=== PATIENT | female | born 1945 | race Caucasian/White ===

== ENCOUNTER → 2020-08-11 11:09 | Outpatient (REF) | payer MEDICARE, SELFPAY | LOC: ANHLAB 11:09 | PROVIDERS: PCP Family Medicine Sports Medicine; Visit Provider Nurse Practitioner | DX: C44.311 Basal cell carcinoma of skin of nose (principal); C43.62 Malignant melanoma of left upper limb, including shoulder | CPT/HCPCS: 88305; 88342 ==

== ENCOUNTER → 2020-08-30 00:50 | Outpatient (CLI) | payer MEDICARE, SELFPAY ==
[2020-08-30 16:45] LABS: SARS-CoV-2 RNA PCR Negative
== END ==
PROVIDERS: PCP Family Medicine Sports Medicine; Visit Provider Surgery Plastic and Reconstructive Surgery
DX: Z01.812 Encounter for preprocedural laboratory examination (principal); Z20.822 Contact with and (suspected) exposure to COVID-19
CPT/HCPCS: C9803; U0003; U0005

== ENCOUNTER 2020-09-01 10:37 | Outpatient (CLI) | payer MEDICARE, SELFPAY ==
--- NOTE | 2020-09-01 11:08 | ECG_ITS ---
Measurements Intervals [place] Rate: 85 P: 52 NC: 144 QRS: 39 QRSD: 90 T: 42 QT: 378 QTc: 451 Interpretive Statements SINUS RHYTHM DELAYED PRECORDIAL R/S TRANSITION LOW QRS VOLTAGE IN LIMB LEADS BORDERLINE ST ABNORMALITY- DIFFUSE LEADS BORDERLINE ECG Electronically Signed On 09-01-2020 11:45:28 CDT by Anton Hensley D.O.
[2020-09-01 11:30] LABS: Anion Gap 10 mmol/L (8-16); Blood Urea Nitrogen 22 mg/dL (7-17); Calcium 9.8 mg/dL (8.4-10.2); Carbon Dioxide 27 mmol/L (22-30); Chloride 101 mmol/L (98-107); Estimated Glomerular Filt Rate > 60; Glucose 223 mg/dL (65-110); Potassium 4.2 mmol/L (3.4-5.0); Sodium 138 mmol/L (137-145)
== END 2020-09-01 10:38 | disposition home or self-care (01) ==
LOC: ANHLAB 10:40
PROVIDERS: PCP Family Medicine Sports Medicine; Visit Provider Anesthesiology
DX: E11.9 Type 2 diabetes mellitus without complications (principal); I10 Essential (primary) hypertension; Z01.818 Encounter for other preprocedural examination
CPT/HCPCS: 36415; 80048; 93005

== ENCOUNTER 2020-09-03 01:39 | Day surgery (SDC) | payer MEDICARE, SELFPAY ==
[2020-08-28 12:55] VITALS: BMI 28.2
[2020-09-03] VITALS (9 sets, daily range): BP systolic 131–157; BP diastolic 61–86; PULSE 78–90; RESP 11–18; TEMP 36.1–36.7; O2SAT 91–97
--- NOTE | ~2020-09-03 | NM_ITS ---
EXAMINATION: NM sentinel node w imaging DATE: 09/03/2020 07:53 INDICATION: Melanoma the left arm TECHNIQUE: 0.512 mCi Tc-99m filtered sulfur colloid was injected in two aliquots at the medial and la teral margins of a fungating melanoma at the left upper arm. Frontal scintigram of the chest and axil lae were obtained. IMPRESSION: Left axillary sentinel node noted is present with prominent focal increased activity at the left axil la. Reviewed, dictated and finalized at location A. IMPRESSION: Left axillary sentinel node noted is present with prominent focal increased act ivity at the left axilla.
[2020-09-03] MEDS: LACTATED RINGERS 1,000 ML 30 ML IV CONT ×2 (06:55→10:20)
--- NOTE | 2020-09-03 07:00 | WPDANESEPPF ---
Anes - Initial Pre Proc Eval Procedure: Operation Date: 09/03/20 07:30 Proposed Procedures p Excision of Melanoma Left Arm with [place] Lymph Node Biopsy - Sumeet Baum MD s Excision of Basal Cell Carcinoma of Nose with Frozen Sections - Sumeet Baum MD Date/Time: 09/03/20 07:00 Surgeon: Sumeet Baum MD Pre Op Diagnosis: melanoma,basal cell carcinoma of nose Patient Data Age: 74 Gender: F Height: 1.65 m Weight: 77 kg Allergies Allergy/AdvReac Type Severity Reaction Status Date / Time Sulfa (Sulfonamide Allergy Unknown Verified 08/28/20 12:45 Antibiotics) Home Medications Medication Instructions Recorded Confirmed Type dapagliflozin 10 mg tablet 10 mg PO QAM 08/11/20 08/28/20 History desvenlafaxine 50 mg 50 mg PO QAM 08/11/20 08/28/20 History tablet,extended release 24 hr linagliptin 5 mg tablet 5 mg PO QAM 08/11/20 08/28/20 History pantoprazole 40 mg tablet,delayed 40 mg PO QAM 08/11/20 08/28/20 History release aspirin [Aspir-81] 81 mg PO QAM 08/28/20 08/28/20 History lisinopril-hydrochlorothiazide 1 tablet PO QAM 08/28/20 08/28/20 History Patient hx anesthesia problems: none Family hx anesthesia problems: none [facility] Past Medical History Medical History Depression Diabetes GERD (gastroesophageal reflux disease) Hypertension Surgical History Surgical History History of cholecystectomy 2019 Social History Social History Smoking status: Never smoker Alcohol intake: current Substance use: never Living arrangements: alone Spiritual care concerns: No Anes - Eval Final PreProcedure Day of Procedure 09/03/20 07:00 Patient weight: obese Heart: regular rate and rhythm Lungs: clear to auscultation Airway: Mallampati scale class III Neurological: alert and oriented Last oral intake: >/= 8 hours ASA classification: III Emergent: no Anesthetic plan: proceed Anesthesia type and monitoring: general LMA (may use ETT) and standard monitoring Informed Consent: The patient's anesthetic plan and its attendant risks and benefits were discussed with the patient/family/POA. Questions were solicited and answers provided to the satisfaction of the patient/family/POA.
[2020-09-03 07:03] LABS: Glucose Point of Care 219 mg/dl (65-105)
--- NOTE | 2020-09-03 07:43 | WPDHPUPDATE1 ---
History and Physical Update Update Date/Time: 09/03/20 07:43 History and Physical has been reviewed, including an updated exam of the patient. There are NO changes in the patient's condition. Will plan to proceed with: 1. Right nasal sidewall excision BCC with FS 2. Left forearm excision melanoma with sentinel node biopsy Risks, benefits, and alternatives have been discussed and questions answered. Patient agrees to proceed with procedure.
--- NOTE | 2020-09-03 07:44 | W.PM.PROC2 ---
Procedure Note - Detailed Date of Procedure 09/03/20 Pre-op Diagnosis melanoma,basal cell carcinoma of nose Post-op Diagnosis same Procedure Performed 1. Excision basal cell carcinoma right nasal sidewall 3 cm 2. Wide excision of melanoma left forearm 9 cm 3. Complex closure left forearm 9 cm 4. Oil Trough node biopsy left axilla x2 Surgeon Sumeet Baum MD Anesthesia general Indications She is a very pleasant 74-year-old female that came to see us with lesions of concern. On her right nasal sidewall pathology returned as BCC. Her left arm as a malignant melanoma with positive margins. She has elected to proceed with wide excision, sentinel node, and excision of BCC with frozen section. Findings Right nasal sidewall BCC had 2 components. These were 2 separate be cc in both completely excised on frozen section. Left axillary sentinel node biopsy 2 nodes were identified. The background was less than 10%. These were significantly enlarged. No pigmentation that was obvious. Wide excision with greater than 2 cm margins on left forearm. I was able to close. Description of Procedure Preoperative leave spent extensive time discussing the risks benefits and alternatives. I want her to be very realistic about the risks involved as well as expectations. I was very up front honest about long-term outcome and expectations. Reviewed NCCN guidelines. All questions answered and consent obtained. Preoperatively she was sent to Radiology. Oil Trough nodes were identified. She was then taken to the operating room placed supine on the operating room table. Anesthesia provided by anesthesiology and prepped and draped in a standard sterile fashion. Surgical time-out was taken. I proceeded with the nose 1st. 1% lidocaine and 0.25% Marcaine with epinephrine was used anesthetize locally. Fifteen blade used to make an incision around the lesion. It did appear just directly adjacent there was a 2nd BCC which was included. This was in fact basal cell carcinoma. It was completely excised and the 2 combined size which became 1 incision was 3 cm. I advanced cheek and closed with horizontal mattress 5 0 nylon. Gloves were changed we used different instrumentation. I identified the left axillary sentinel node with lymphoscintigraphy. Using the probe I was able to identify the point of maximal count and 1% lidocaine and 0.25% Marcaine with epinephrine was used anesthetize locally. A 15 blade made incision and dissection was continued down until the nodes were identified. There are 2 separate fairly enlarged nodes. No pigmentation. I copiously irrigated with saline solution. Verified strict hemostasis. The background was less than 10%. There is no evidence of neurovascular or other structure injury. I closed in many layers using 2-0 Vicryl followed by 3-0 Monocryl in a running subcuticular 4-0 Monocryl and tissue glue. I then proceeded to the arm. We had discussed the exact area removed. I did a 2 cm border however she had significant pigmentation worrisome for in situ disease proximal and this was removed as well. 1% lidocaine and 0.25% Marcaine with epinephrine was used to anesthetize. A 15 blade used to make an incision I elevated this just above the fascia. This was sent to pathology and measured 9 cm. I then undermined just at the level of fascia bilaterally in order to provide closure. I closed in many layers using 2-0 Vicryl followed by 3-0 Monocryl and vertical mattress 3-0 nylon. She tolerated well. Awoke and taken to the PACU without difficulty. All instrument sponge counts were correct at the end of the case. Estimated Blood Loss 30 Drains No Packing No Pathology yes ( Right nasal BCC, left forearm melanoma, left axillary sentinel node biopsy x2) Complications No immediate complications Condition stable Disposition PACU
[2020-09-03] MEDS: ceFAZolin 2 GM/D5W 50 ML 2 GM/50 ML BAG IVPB (08:02)
[2020-09-03] MEDS: BUPIVACAINE HCL 0.25% PF 30 ML VIAL INFILTRATE (08:25)
--- NOTE | 2020-09-03 09:12 | SUR.OPER ---
FROZEN SPECIMEN SENT WITH [facility], RECEIVED IN PATHOLOGY BY ALISSA
--- NOTE | 2020-09-03 09:28 | SUR.OPER ---
SENTINEL LYMPH NODES SENT WITH [facility], RECEIVED BY ALISSA [facility] CELL CARCINOMA BX SENT WITH [facility], RECEIVED BY ALISSA
[2020-09-03] MEDS: BACITRACIN OINTMENT 15 GM TUBE 1 APPLIC TOPICAL (09:56)
--- NOTE | 2020-09-03 10:04 | SUR.OPER ---
PATHOLOGY GAVE VERBAL REPORT TO DR CHAVEZ REGARDING SPECIMENS
[2020-09-03] MEDS: fentaNYL CITRATE INJ (*CRX) 100 MCG/2 ML VIAL 25 MCG IV PUSH (11:14)
[2020-09-03] MEDS: oxyCODONE HCL (*CRX) 5 MG TAB IR PO (11:46)
--- NOTE | 2020-09-03 11:49 | SUR.PHASEII ---
DR XIONG AWARE OF GLUCOSE AT 219 PREOP AND 220 POSTOP. NO ORDERS AT THIS TIME.
[2020-09-03 12:45] LABS: Glucose Point of Care 220 mg/dl (65-105)
== END 2020-09-03 12:40 | disposition home or self-care (01) ==
PROVIDERS: PCP Family Medicine Sports Medicine; Visit Provider Surgery Plastic and Reconstructive Surgery
PROC: (CPT 11606; principal; 2020-09-03 07:30)
PROC: (CPT 11606; 2020-09-03 07:30)
DX: C43.62 Malignant melanoma of left upper limb, including shoulder (principal); C44.311 Basal cell carcinoma of skin of nose; I10 Essential (primary) hypertension; E11.9 Type 2 diabetes mellitus without complications; K21.9 Gastro-esophageal reflux disease without esophagitis; F32.9 Major depressive disorder, single episode, unspecified; Z79.84 Long term (current) use of oral hypoglycemic drugs; E66.9 Obesity, unspecified; Z68.32 Body mass index [BMI] 32.0-32.9, adult
CPT/HCPCS: 11606; 13121; 13122; 11643; 38525; 36415; 78195; 80048; 82948; 88305; 88307; 88331; 88332; 88342; 93005; A9270; A9520; C9803; J0690; J1100; J2405; J2704; J3010; J7120; U0003; U0005

== ENCOUNTER → 2020-09-22 03:36 | Outpatient (CLI) | payer MEDICARE, SELFPAY ==
[2020-09-22 17:32] LABS: SARS-CoV-2 RNA PCR Negative
== END ==
PROVIDERS: PCP Family Medicine Sports Medicine; Visit Provider Surgery Plastic and Reconstructive Surgery
DX: Z01.812 Encounter for preprocedural laboratory examination (principal); Z20.822 Contact with and (suspected) exposure to COVID-19
CPT/HCPCS: C9803; U0003; U0005

== ENCOUNTER 2020-09-22 08:24 | Outpatient (CLI) | payer MEDICARE, SELFPAY ==
[2020-09-22 08:44] LABS: Basophils Percent Auto 0.5 % (0.2-1.2); Eosinophils Absolute Auto 0.4 K/mm3 (0-0.3); Eosinophils Percent Auto 5.7 % (0-4.4); Hematocrit 46.4 % (37.0-47.0); Hemoglobin 14.9 g/dL (12.0-15.0); Immature Granulocyte Absolute 0.05 K/mm3 (0.00-0.031); Immature Granulocyte Percent A 0.7 % (0-0.5); Lymphocytes Absolute Auto 2.48 K/mm3 (0.9-3.2); Lymphocytes Percent Auto 32.9 % (18.3-44.2); Mean Corpuscular HGB Conc 32.1 g/dl (32-36); Mean Corpuscular Volume 90.4 fl (80-100); Mean Platelet Volume 9.1 fl (7.4-10.4); Monocytes Absolute Auto 0.6 K/mm3 (0.1-0.6); Monocytes Percent Auto 7.7 % (2.6-8.5); Neutrophils Percent Auto 52.5 % (45.5-73.1); Platelet Count Result 242 k/mm3 (150-375); Red Blood Count 5.13 M/mm3 (4.2-5.4); Red Cell Distribution Width 14.1 % (11.5-14.5); White Blood Count 7.5 K/mm3 (4.5-10.0)
[2020-09-22 12:43] LABS: Alanine Aminotransferase 28 U/L (4-35); Albumin Level 3.8 g/dL (3.5-5.1); Alkaline Phosphatase 103 U/L (38-126); Anion Gap 7 mmol/L (8-16); Aspartate Amino Transferase 32 U/L (14-36); Bilirubin,Total 0.5 mg/dL (0.2-1.3); Blood Urea Nitrogen 17 mg/dL (7-17); Calcium 9.6 mg/dL (8.4-10.2); Carbon Dioxide 27 mmol/L (22-30); Chloride 105 mmol/L (98-107); Estimated Glomerular Filt Rate > 60; Glucose 205 mg/dL (65-110); Lactate Dehydrogenase 409 U/L (313-618); Potassium 4.3 mmol/L (3.4-5.0); Sodium 139 mmol/L (137-145)
== END 2020-09-22 08:25 | disposition home or self-care (01) ==
LOC: ANHLAB 08:28
PROVIDERS: PCP Family Medicine Sports Medicine; Visit Provider Internal Medicine Hematology & Oncology
DX: C43.62 Malignant melanoma of left upper limb, including shoulder (principal)
CPT/HCPCS: 36415; 80053; 83615; 85025

== ENCOUNTER 2020-09-25 02:48 | Day surgery (SDC) | payer MEDICARE, SELFPAY ==
[2020-09-17 15:41] VITALS: BMI 32.6
[2020-09-25] VITALS (7 sets, daily range): BP systolic 121–138; BP diastolic 63–70; PULSE 78–90; RESP 10–18; TEMP 36.5–37; O2SAT 94–100
[2020-09-25] MEDS: LACTATED RINGERS 1,000 ML 30 ML IV CONT ×2 (12:45→15:49)
[2020-09-25 12:56] LABS: Glucose Point of Care 170 mg/dl (65-105)
--- NOTE | 2020-09-25 13:07 | WPDANESEPPF ---
Anes - Initial Pre Proc Eval Procedure: Operation Date: 09/25/20 14:30 Proposed Procedures p Excision Melanoma Left Arm - Sumeet Baum MD s with Split Thickness Skin Graft - Sumeet Baum MD Date/Time: 09/25/20 13:07 Surgeon: Sumeet Baum MD Pre Op Diagnosis: melanoma left arm Patient Data Age: 74 Gender: F Height: 1.65 m Weight: 89 kg Last Vital Signs Temp 37.0 C 09/25/20 12:59 Pulse 90 09/25/20 12:59 Resp 18 09/25/20 12:59 BP 126/70 09/25/20 12:59 Pulse Ox 98 09/25/20 12:59 Allergies Allergy/AdvReac Type Severity Reaction Status Date / Time Sulfa (Sulfonamide Allergy Unknown Verified 09/25/20 12:57 Antibiotics) Home Medications Medication Instructions Recorded Confirmed Type dapagliflozin 10 mg tablet 10 mg PO QAM 08/11/20 09/17/20 History desvenlafaxine 50 mg 50 mg PO QAM 08/11/20 09/25/20 History tablet,extended release 24 hr linagliptin 5 mg tablet 5 mg PO QAM 08/11/20 09/17/20 History pantoprazole 40 mg tablet,delayed 40 mg PO QAM 08/11/20 09/17/20 History release aspirin 81 mg PO QAM 08/28/20 09/25/20 History lisinopril-hydrochlorothiazide 1 tablet PO QAM 08/28/20 09/17/20 History cephalexin 500 mg capsule 500 mg PO Q8H #21 cap 09/15/20 09/25/20 Rx hydrocodone 5 mg-acetaminophen 325 1 tablet PO Q6H PRN #15 tablet 09/25/20 Rx mg tablet Laboratory Tests 09/25/20 12:50 POC Capillary Glucose 170 mg/dl H mg/dl (65-105) Patient hx anesthesia problems: none Family hx anesthesia problems: none [facility] Past Medical History Medical History Anxiety Depression Diabetes GERD (gastroesophageal reflux disease) Hypertension Surgical History Surgical History History of cholecystectomy 2019 Social History Social History Smoking status: Never smoker Alcohol intake: never Substance use: never Living arrangements: alone Spiritual care concerns: No Anes - Eval Final PreProcedure Day of Procedure 09/25/20 13:07 Patient weight: obese Heart: regular rate and rhythm Lungs: clear to auscultation Airway: Mallampati scale class II Neurological: other (alert) Last oral intake: >/= 8 hours ASA classification: III Emergent: no Anesthetic plan: proceed Anesthesia type and monitoring: general LMA and standard monitoring Informed Consent: The patient's anesthetic plan and its attendant risks and benefits were discussed with the patient/family/POA. Questions were solicited and answers provided to the satisfaction of the patient/family/POA.
--- NOTE | 2020-09-25 13:30 | WPDHPUPDATE1 ---
History and Physical Update Update Date/Time: 09/25/20 13:30 History and Physical has been reviewed, including an updated exam of the patient. There are NO changes in the patient's condition. She would like to proceed with left forearm re-excision with additional margin and STSG. Risks, benefits, and alternatives have been discussed and questions answered. Patient agrees to proceed with procedure.
--- NOTE | 2020-09-25 13:44 | W.PM.PROC2 ---
Procedure Note - Detailed Date of Procedure 09/25/20 Pre-op Diagnosis melanoma left arm Post-op Diagnosis same Procedure Performed 1. Wide excision melanoma left forearm 15 cm 2. Complex closure left forearm 5 cm 3. Split thickness skin graft left forearm 5 x 10 cm (50 cm2) Surgeon Sumeet Baum MD Anesthesia general Indications Previously excised left forearm Melanoma. Pathology: F. SKIN, LEFT FOREARM LESION, EXCISION: - NODULAR MELANOMA, 10.5 MM THICKNESS WITH ULCERATION (pT4b) - BACKGROUND MELANOMA IN SITU AND BIOPSY SITE CHANGES - MARGINS NEGATIVE FOR INVASIVE MELANOMA - MELANOMA IN SITU IS NARROWLY EXCISED (SEE SYNOPTIC REPORT) Margin 1.3cm. Description of Procedure Risks, benefits, alternatives were discussed in extensive detail. I wanted her to be very realistic about the risks involved as well as expectations. She understands why we are proceeding with additional margin resection. This was discussed with her in great detail again today in his previously been discussed with her oncologist. She would like to proceed after understanding all her options. We also had a lengthy conversation about the severe nature of her melanoma given the pathology findings. Answered all of her questions to her satisfaction today. She voiced an understanding. Consent obtained. She was marked in the preoperative holding area with her verification. She was taken to the operating room placed supine on the operating room table. Anesthesia provided by anesthesiology and prepped and draped in a standard sterile fashion. Surgical time-out was taken. 1% lidocaine and 0.25% Marcaine with epinephrine was used to provide a block at the donor site for the skin graft then followed by the melanoma re-excision site. Fifteen blade used to make an incision around the melanoma it. Dissection was continued down until the fascia was identified and after consensus opinion with discussion with Oncology we did take the fascia at this location leaving the extensor muscles intact. Copious irrigated with saline solution. On the proximal and distal halves able to widely undermine in order to provide partial closure of the wound. This was closed using 2-0 Vicryl followed by 3-0 Monocryl and 3-0 nylon. Using a Elsie dermatome I harvested a 12 1 thousands of an inch split-thickness skin graft from her left thigh. This was meshed and placed onto the wound. I stapled into place and created a tie-over bolster with Xeroform cotton held into place with 3-0 nylon. Occlusive dressing was placed at the donor site using a Tegaderm. Arm dressing was placed as well. She was taken to the PACU without difficulty. All instrument sponge counts were correct at the end of the case. Estimated Blood Loss 5 Drains No Packing Yes (Bolster dressing) Pathology yes ( left forearm re-excision melanoma) Complications No immediate complications Condition stable Disposition PACU
[2020-09-25] MEDS: ceFAZolin 2 GM/D5W 50 ML 2 GM/50 ML BAG IVPB (13:48)
[2020-09-25] MEDS: EPINEPHrine HCL INJ 1 MG/ML AMPUL IRRIGATION (14:30)
[2020-09-25] MEDS: BUPIVACAINE HCL 0.25% PF 30 ML VIAL INFILTRATE (14:35)
[2020-09-25] MEDS: MINERAL OIL LIGHT 30 ML BTL TOPICAL (14:56)
[2020-09-25 15:28] LABS: Glucose Point of Care 142 mg/dl (65-105)
== END 2020-09-25 16:55 | disposition home or self-care (01) ==
PROVIDERS: PCP Family Medicine Sports Medicine; Visit Provider Surgery Plastic and Reconstructive Surgery
PROC: (CPT 11606; principal; 2020-09-25 14:30)
PROC: (CPT 11606; 2020-09-25 14:30)
DX: C43.62 Malignant melanoma of left upper limb, including shoulder (principal); I10 Essential (primary) hypertension; E11.9 Type 2 diabetes mellitus without complications; K21.9 Gastro-esophageal reflux disease without esophagitis; F41.8 Other specified anxiety disorders; Z79.82 Long term (current) use of aspirin; Z79.84 Long term (current) use of oral hypoglycemic drugs; E66.9 Obesity, unspecified; Z68.32 Body mass index [BMI] 32.0-32.9, adult
CPT/HCPCS: 11606; 15100; 36415; 80053; 82948; 83615; 85025; 88305; 88342; C9803; J0171; J0690; J2405; J2704; J3010; J7120; U0003; U0005

== ENCOUNTER 2021-01-12 10:43 | Outpatient (CLI) | payer MEDICARE, SELFPAY ==
[2021-01-12 10:57] LABS: Basophils Percent Auto 0.5 % (0.2-1.2); Eosinophils Absolute Auto 0.2 K/mm3 (0-0.3); Eosinophils Percent Auto 1.9 % (0-4.4); Hematocrit 48.5 % (37.0-47.0); Immature Granulocyte Absolute 0.03 K/mm3 (0.00-0.031); Immature Granulocyte Percent A 0.3 % (0-0.5); Lymphocytes Absolute Auto 2.43 K/mm3 (0.9-3.2); Lymphocytes Percent Auto 27.4 % (18.3-44.2); Mean Corpuscular Hemoglobin 28.7 pg (26-34); Mean Corpuscular Volume 86.9 fl (80-100); Monocytes Absolute Auto 0.6 K/mm3 (0.1-0.6); Monocytes Percent Auto 6.4 % (2.6-8.5); Neutrophils Absolute Auto 5.6 K/mm3 (1.3-6.7); Neutrophils Percent Auto 63.5 % (45.5-73.1); Platelet Count Result 237 k/mm3 (150-375); Red Blood Count 5.58 M/mm3 (4.2-5.4); Red Cell Distribution Width 14.6 % (11.5-14.5); White Blood Count 8.9 K/mm3 (4.5-10.0)
[2021-01-12 17:20] LABS: Alanine Aminotransferase 28 U/L (4-35); Albumin Level 4.3 g/dL (3.5-5.1); Alkaline Phosphatase 98 U/L (38-126); Anion Gap 13 mmol/L (8-16); Aspartate Amino Transferase 66 U/L (14-36); Bilirubin,Total 0.7 mg/dL (0.2-1.3); Blood Urea Nitrogen 27 mg/dL (7-17); Calcium 9.8 mg/dL (8.4-10.2); Carbon Dioxide 23 mmol/L (22-30); Chloride 102 mmol/L (98-107); Estimated Glomerular Filt Rate > 60; Glucose 286 mg/dL (65-110); Potassium 4.1 mmol/L (3.4-5.0); Sodium 138 mmol/L (137-145)
[2021-01-12 17:35] LABS: Lactate Dehydrogenase 391 U/L (313-618)
== END 2021-01-12 10:44 | disposition home or self-care (01) ==
LOC: ANHLAB 10:45
PROVIDERS: PCP Family Medicine Sports Medicine; Visit Provider Internal Medicine Hematology & Oncology
DX: C43.62 Malignant melanoma of left upper limb, including shoulder (principal)
CPT/HCPCS: 36415; 80053; 83615; 85025